=== PATIENT | female | born 1955 | race Caucasian/White ===

== ENCOUNTER → 2016-08-21 | Outpatient (CLI) | payer BC ==
[~2016-08-21] MED LIST: CALC600T9 PO; CONJ0.453 PO; DIPH1TAB PO; EPP3/2 IM; FLUT0.15 NAE; METH4PAK PO; MULT-506 PO; OMEG10007 PO
--- NOTE | 2016-08-22 12:39 | MAMMOGRAPHY REPORT ---
BILATERAL DIGITAL SCREENING MAMMOGRAM TOMOSYNTHESIS WITH CAD: 08/21/2016 CLINICAL HISTORY: Routine screening. Patient has no complaints. TECHNIQUE: Breast tomosynthesis in addition to standard 2D mammography was performed. Current study was also evaluated with a Computer Aided Detection (CAD) system. COMPARISON: Comparison is made to exams dated: 08/09/2015 mammogram, 07/28/2013 mammogram, 08/05/20 14 ultrasound, 07/16/2012 mammogram, 07/11/2011 mammogram, and 07/01/2010 mammogram - [facility]. BREAST COMPOSITION: The tissue of both breasts is heterogeneously dense, which may obscure small ma sses. FINDINGS: There is a stable intramammary lymph node in the upper outer posterior right breast. No suspicious mass, architectural distortion or cluster of microcalcifications is seen. IMPRESSION: ACR BI-RADS CATEGORY 1: NEGATIVE There is no mammographic evidence of malignancy. A 1 year screening mammogram is recommended. The p atient will receive written notification of the results. Approximately 10% of breast cancers are not detected with mammography. A negative mammographic repor t should not delay biopsy if a clinically suggestive mass is present. Ct Delaney M.D. ay/:08/21/2016 16:20:11 [employer] Power[employer] Supervisor: Alberta OCHOA(Maria Teresa)(M), [facility] letter sent: Normal 1/2 BI-RADS Code: ACR BI-RADS Category 1: Negative
== END | disposition home or self-care (01) ==
LOC: C.MAMM 11:26
PROVIDERS: ATTEND Obstetrics & Gynecology
DX: Z12.31 Encounter for screening mammogram for malignant neoplasm of breast (principal)

== ENCOUNTER 2016-11-26 11:20 | Emergency (ER) | payer BC ==
[~2016-11-26] VITALS: Ht 162.6 cm; Wt 70.0 kg
[2016-11-26 11:22] VITALS: TEMP 36.5; Ht 162.6 cm; Wt 70.0 kg
[2016-11-26] MEDS ORDERED: SODIUM CHLORIDE 0.9% 1000ML 1,000 ML IV STA (11:31)
[2016-11-26] MEDS ORDERED: FAMOTIDINE IV INJ 20 MG in DEXTROSE 5% 100ML 100 ML IV STA (11:31)
[2016-11-26] MEDS ORDERED: METHYLPREDNISOLONE 125 MG VIAL IV STA (11:31)
[2016-11-26] MEDS ORDERED: DiphenhydrAMINE HCL 50 MG/ML VIAL IV STA (11:31)
[2016-11-26] MEDS ORDERED: DIPH1TAB87 PO (11:32)
[2016-11-26] MEDS ORDERED: CALC600T9 PO (11:34)
[2016-11-26] MEDS ORDERED: CONJ0.453 PO (11:34)
[2016-11-26] MEDS ORDERED: MULT-506 PO (11:34)
[2016-11-26] MEDS ORDERED: EPP3/2 IM ×2 (11:34→13:51)
[2016-11-26] MEDS ORDERED: FLUT0.15 NAE (11:34)
[2016-11-26] MEDS ORDERED: OMEG10007 PO (11:34)
[2016-11-26 11:47] VITALS: O2SAT 100
[2016-11-26 11:49] LABS: BASO % 0.1 %; BASO ABS # 0.01 K/uL (0-0.2); COMPLETE YES; EOS % 1.6 %; HEMATOCRIT 43.1 % (37-47); IG% 0.3 %; LYMPH % 45.6 %; LYMPH ABS # 3.19 K/uL (1.2-3.4); MEAN CELL VOLUME 92.5 fL (80-100); MEAN CORPUSCULAR HEMOGLOBIN 31.8 pg (25-34); MEAN CORPUSCULAR HGB CONC 34.3 g/dl (32-36); MEAN PLATELET VOLUME 10.7 fL (7.4-10.4); MONO % 6.2 %; NEUT % 46.2 %; PLATELET COUNT 282 K/uL (130-400); RED BLOOD COUNT 4.66 M/uL (4.2-5.4); WHITE BLOOD COUNT 6.99 K/uL (4.8-10.8)
[2016-11-26 12:06] LABS: BUN/CREATININE RATIO 15.9 (10-20); CALCIUM 9.2 mg/dl (8.5-10.1); CREATININE 0.89 mg/dl (0.60-1.20); POTASSIUM 3.7 mmol/L (3.5-5.1)
[2016-11-26] MEDS ORDERED: METH4PAK PO (13:51)
[2016-11-26 14:10] VITALS: BP 114/82; PULSE 70; O2SAT 98
--- NOTE | 2016-11-26 20:24 | EMERGENCY ROOM VISIT NOTE ---
History First contact with patient: 11:25 Chief Complaint: ALLERGIC REACTION Stated Complaint: BEE STINGS History of Present Illness The patient is a 60 year old female who presents to the Emergency Room with complaints of an allergic reaction to honey bee stings. The patient and reported that they were working with their the hives when they swarmed and stung the patient. The patient reports multiple stings. Within a few minutes, she started to develop itchiness and swelling of her skin. She denies any tongue/throat swelling, palpitations or shortness of breath. She did take Benadryl approximately 20 minutes prior to arrival without any relief. The patient denies any prior history of bee stings, and has been stung before in the past. She rates her overall discomfort an 8 out of 10. Tetanus immunization is up-to-date. Review of Systems HEENT: Denies dizziness, visual problems, hearing loss, tinnitus. Denies difficulty swallowing or oral lesions. PULMONARY: Denies cough, shortness of breath, sputum production or hemoptysis. CARDIOVASCULAR: Denies chest pain, palpitations, dyspnea on exertion, orthopnea or peripheral edema. GASTROINTESTINAL: Denies diarrhea, constipation, nausea, vomiting, or abdominal pain. GENITOURINARY: Denies dysuria, frequency, urgency or nocturia. NEUROLOGIC: Denies history of epilepsy, CVA, TIA or chronic headaches. MUSCULOSKELETAL: Denies history of joint tenderness/swelling. SKIN: Denies rashes or lesions. PSYCHIATRIC: Denies history of depression or mental illness. ENDOCRINE: Denies history of diabetes or thyroid disorders. Past Medical/Surgical History Medical Problems: (1) Asthma, Unspecified (2) Diverticulosis Colon (W/O Ment Of Hemorrhage) (3) Hypercholesterolemia Surgical Problems: (1) No history of previous surgery Family History FH: cancer FH: diabetes mellitus FH: gallbladder disease FH: heart disease FH: hypertension Social History Smoking Status: Never Smoker Alcohol Use: occasionally Marital Status: Occupation Status: retired Current/Historical Medications Scheduled Calcium Carbonate-Vitamin D (Calcium + D), 1 TAB PO DAILY Diphenhydramine Hcl (Benadryl Allergy), 50 MG PO DIRECTED Epinephrine (Epipen), 0.3 MG IM UD Epinephrine (Epipen), 0.3 MG IM UD [place] Conj/Medryoxyprog Acet (Prempro 0.45MG/1.5MG), 1 TAB PO DAILY Fish Oil ([place]-3), 1 CAP PO DAILY Methylprednisolone (Medrol Dosepak), 0 PO DAILY Multivitamin (Multivitamin), 1 TAB PO DAILY Scheduled PRN Fluticasone Propionate (Nasal) (Flonase Allergy Relief), 1 SPRAY MAGY DAILY PRN for PRN Allergies Coded Allergies: No Known Allergies (Unverified , 11/26/16) Physical Exam Vital Signs Date Time Temp Pulse Resp B/P Pulse Ox O2 Delivery O2 Flow Rate FiO2 11/26/16 14:10 70 114/82 98 11/26/16 13:00 60 135/82 11/26/16 12:31 65 11/26/16 11:55 65 16 155/59 100 Room Air 11/26/16 11:47 100 Room Air 11/26/16 11:47 100 Room Air 11/26/16 11:22 36.5 85 18 150/94 99 Room Air Physical Exam CONSTITUTIONAL: Healthy and well nourished. Alert and oriented X 3 with positive affect. Patient appears in mild to moderate distress from pruritus and discomfort. HEENT: Normocephalic, atraumatic. Pupils equal, round and reactive. No conjunctival injection. OROPHARYNX: No evidence for May[place]'s angina or angioedema. Posterior pharynx is patent. NECK: Full active range of motion without discomfort. No JVD or carotid bruits. RESPIRATORY: Clear to auscultation bilaterally with no wheezing, crackles, rhonchi or stridor. CARDIOVASCULAR: Regular rate and rhythm with no murmurs, rubs or gallops. GASTROINTESTINAL: Bowel sounds present in all quadrants. Soft and nontender to palpation. MUSCULOSKELETAL: Full range of motion of all joints without discomfort. INTEGUMENTARY: Examination shows global widespread urticaria. Quick examination does not show any obvious stingers. NEUROLOGIC: Cranial nerves II-XII grossly intact. No focal neurologic deficits noted. Medical Decision & Procedures ER Provider Diagnostic Interpretation: My interpretation of an ECG shows a normal sinus rhythm of [address] elevation or other conduction abnormalities. Laboratory Results 11/26/16 11:34 Red Blood Count 4.66, Mean Corpuscular Volume 92.5, Mean Corpuscular Hemoglobin 31.8, Mean Corpuscular Hemoglobin Concent 34.3, Mean Platelet Volume 10.7, Neutrophils (%) (Auto) 46.2, Lymphocytes (%) (Auto) 45.6, Monocytes (%) (Auto) 6.2, Eosinophils (%) (Auto) 1.6, Basophils (%) (Auto) 0.1, Neutrophils # (Auto) 3.23, Lymphocytes # (Auto) 3.19, Monocytes # (Auto) 0.43, Eosinophils # (Auto) 0.11, Basophils # (Auto) 0.01 11/26/16 11:34 Test 11/26/16 11:34 White Blood Count 6.99 K/uL (4.8-10.8) Red Blood Count 4.66 M/uL (4.2-5.4) Hemoglobin 14.8 g/dL (12.0-16.0) Hematocrit 43.1 % (37-47) Mean Corpuscular Volume 92.5 fL (80-100) Mean Corpuscular Hemoglobin 31.8 pg (25-34) Mean Corpuscular Hemoglobin Concent 34.3 g/dl (32-36) Platelet Count 282 K/uL (130-400) Mean Platelet Volume 10.7 fL (7.4-10.4) Neutrophils (%) (Auto) 46.2 % Lymphocytes (%) (Auto) 45.6 % Monocytes (%) (Auto) 6.2 % Eosinophils (%) (Auto) 1.6 % Basophils (%) (Auto) 0.1 % Neutrophils # (Auto) 3.23 K/uL (1.4-6.5) Lymphocytes # (Auto) 3.19 K/uL (1.2-3.4) Monocytes # (Auto) 0.43 K/uL (0.11-0.59) Eosinophils # (Auto) 0.11 K/uL (0-0.5) Basophils # (Auto) 0.01 K/uL (0-0.2) RDW Standard Deviation 42.8 fL (36.4-46.3) RDW Coefficient of Variation 12.8 % (11.5-14.5) Immature Granulocyte % (Auto) 0.3 % Immature Granulocyte # (Auto) 0.02 K/uL (0.00-0.02) Anion Gap 12.0 mmol/L (3-11) Est Creatinine Clear Calc Drug Dose 66.2 ml/min Estimated GFR () 82.8 Estimated GFR (Non- 71.4 BUN/Creatinine Ratio 15.9 (10-20) Calcium Level 9.2 mg/dl (8.5-10.1) The above labs were reviewed and unremarkable. Medications Administered Medications (Trade) Dose Ordered Sig/Oxana Route Start Time Stop Time Status Last Admin Dose Admin Sodium Chloride (Nss 1000ml) 1,000 ml @ 0 mls/hr Q0M STAT IV 11/26/16 11:31 11/26/16 11:34 DC 11/26/16 11:43 1,000 MLS/HR Methylprednisolone Sodium Succinate (Solu-Medrol IV) 125 mg NOW STAT IV 11/26/16 11:31 11/26/16 11:34 DC 11/26/16 11:43 125 MG Diphenhydramine HCl 50 mg 50 mg NOW STAT IV 11/26/16 11:31 11/26/16 11:34 DC 11/26/16 11:31 50 MG Famotidine/ Dextrose (Pepcid IV Inj/ D5 100ml) 102 ml @ 200 mls/hr ONE STAT IV 11/26/16 11:31 11/26/16 12:01 DC 11/26/16 12:06 200 MLS/HR Procedure 1. IV hydration: The patient received a liter normal saline bolus 2. IV medications: The patient initially was administered Benadryl 50 mg, Pepcid 20 mg and Solu-Medrol 125 mg IVP ED Course Patient history and physical exam were performed. Nurse's notes were reviewed. Vital signs were reviewed and normal. The patient is normotensive and not tachycardic. O2 saturation is 99% on room air. Clinical exam does not show the patient in any acute distress. She has no physical exam findings to suggest angioedema or airway compromise. IV access was established, and labs were drawn. Patient was also placed on cardiac rehabilitation specialist. The patient was hydrated with normal saline, and received IV medications as discussed in the previous Procedure section. ECG was normal. Review of labs showed no acute abnormalities. The patient quickly resolved the hives. She was observed for 2 hours without any adverse reaction. At the time of discharge, the patient denied any palpitations, chest tightness, difficulty breathing, throat/tongue swelling or other concerning symptoms. She felt well enough to go home. The patient was provided prescriptions for a Medrol Dosepak and EpiPen 2 pack with a labor trainer. I did encourage the patient to take Benadryl and Zantac over the next 48-72 hours. She will take her next dose of her Medrol Dosepak tomorrow morning. She was encouraged to keep cool and avoid any other strenuous activities for the next few days. If she develops any severe reaction , she was instructed to administer her EpiPen and called 911. Otherwise, she was encouraged to follow-up with her PCP as needed for further management. She was warned about the potential reaction to any future bee stings, and encouraged to practice safe bee keeping. The patient and were happy with plan of care, and voiced understanding of all discharge instructions. Medical Decision Impression Primary Impression: Anaphylaxis Departure Information Prescriptions Epinephrine (EPIPEN) 0.3 Mg/0.3 Ml Inj 0.3 MG IM UD, #1 BOX Prov: Jake Sapp PA 11/26/16 Methylprednisolone (MEDROL DOSEPAK) 4 Mg [place] 0 PO DAILY, #1 PKT Prov: Jake Sapp PA 11/26/16 Referrals Buck Koenig M.D. (PCP) Patient Instructions My [facility] Problem Qualifiers Primary Impression: Anaphylaxis Encounter type: initial encounter Qualified Codes: T78.2XXA - Anaphylactic shock, unspecified, initial encounter
== END 2016-11-26 14:12 | disposition home or self-care (01) ==
LOC: C.EDB 11:22 → C.EDC 14:12
DX: T78.2XXA Anaphylactic shock, unspecified, initial encounter (principal); X58.XXXA Exposure to other specified factors, initial encounter; T63.441A Toxic effect of venom of bees, accidental (unintentional), initial encounter; J45.909 Unspecified asthma, uncomplicated; K57.30 Diverticulosis of large intestine without perforation or abscess without bleeding; E78.00 Pure hypercholesterolemia, unspecified; Z80.9 Family history of malignant neoplasm, unspecified; Z83.3 Family history of diabetes mellitus; Z83.79 Family history of other diseases of the digestive system; Z82.49 Family history of ischemic heart disease and other diseases of the circulatory system; Z79.899 Other long term (current) drug therapy

== ENCOUNTER → 2017-04-26 | Outpatient (CLI) | payer BC ==
[~2017-04-26] MED LIST changes: -METH4PAK PO
== END | disposition home or self-care (01) ==
LOC: C.PAPS 09:24
PROVIDERS: ATTEND Obstetrics & Gynecology
DX: Z01.419 Encounter for gynecological examination (general) (routine) without abnormal findings (principal); Z11.51 Encounter for screening for human papillomavirus (HPV)

== ENCOUNTER → 2017-08-22 | Outpatient (CLI) | payer OTHER ==
[~2017-08-22] MED LIST changes: -DIPH1TAB PO; +DIPH1TAB87 PO
--- NOTE | 2017-08-22 15:31 | MAMMOGRAPHY REPORT ---
BILATERAL DIGITAL SCREENING MAMMOGRAM TOMOSYNTHESIS WITH CAD: 08/22/2017 CLINICAL HISTORY: Routine screening. Patient has no complaints. TECHNIQUE: Breast tomosynthesis in addition to standard 2D mammography was performed. Current study was also evaluated with a Computer Aided Detection (CAD) system. COMPARISON: Comparison is made to exams dated: 08/21/2016 mammogram, 08/09/2015 mammogram, 08/05/2014 mammogram, 07/28/2013 mammogram, 07/16/2012 mammogram, and 07/11/2011 mammogram - [facility]. BREAST COMPOSITION: The tissue of both breasts is heterogeneously dense, which may obscure small mas ses. FINDINGS: There are a few stable punctate microcalcifications in the breasts. A nodular asymmetry in the middle one third of the right breast, slightly lateral to the posterior nipple line on the CC vi ew appears stable on all available prior mammograms dating back to at least 2011, therefore likely be nign. No new suspicious mass, architectural distortion or cluster of microcalcifications is seen. IMPRESSION: ACR BI-RADS CATEGORY 1: NEGATIVE There is no mammographic evidence of malignancy. A 1 year screening mammogram is recommended. The pa tient will receive written notification of the results. Approximately 10% of breast cancers are not detected with mammography. A negative mammographic report should not delay biopsy if a clinically suggestive mass is present. Ct Delaney M.D. ay/:08/22/2017 10:21:27 Bath Attendant: Jannie MINOR)(Allen), letter sent: Normal 1/2 BI-RADS Code: ACR BI-RADS Category 1: Negative
== END | disposition home or self-care (01) ==
LOC: C.MAMM 09:58
PROVIDERS: ATTEND Obstetrics & Gynecology
DX: Z12.31 Encounter for screening mammogram for malignant neoplasm of breast (principal)

== ENCOUNTER → 2017-12-26 | Day surgery (SDC) | payer BC, OTHER ==
[2017-12-13 15:07] VITALS: Ht 162.6 cm; Wt 68.2 kg
[~2017-12-26] VITALS: Ht 162.6 cm; Wt 68.2 kg
[~2017-12-26] MED LIST changes: +ALBU18002 INH; +CONJ0.3T3 PO; -CONJ0.453 PO; +KETO10TA PO; +LIDOCAINE HCL 2% 2 ML VIAL (20MG/ML) ONE; +OXYC-57 PO; +PROPOFOL IV EMULSION 10 MG/ML 20 ML VIAL ONE; +RANI150T3 PO
--- NOTE | 2017-12-26 12:47 | Endo History and Physical ---
History & Physical Date of Service: December 26, 2017. Chief Complaint: Screening Referring Physician: Dr Centeno History of Present Illness 62 yo CF who presents for screening colonoscopy. Past Surgical History Hx Cardiac Surgery: No Hx Internal Defibrillator: No Hx Pacemaker: No Hx Abdominal Surgery: No Hx of Implantable Prosthesis: No Hx Post-Op Nausea and Vomiting: No Hx Cancer Surgery: No Hx Thoracic Surgery: No Hx Orthopedic: No Hx Urinary Tract Surgery: No Family History Colon CA, Polyp Social History Smoking Status: Never Smoker Hx Substance Use: No Hx Alcohol Use: Yes (OCCASIONALLY 1-2 GLASSES OF WINE) Allergies Coded Allergies: NO KNOWN DRUG ALLERGIES (Verified Allergy, Unknown, ., 12/26/17) Uncoded Allergies: BEE STINGS (Allergy, Severe, ANAPHYLAXIS, 12/13/17) Current Medications Reported Home Medications Medications Dose Route/Sig Max Daily Dose Days Date Category Proair Respiclick (Albuterol Sulfate) 108 Mcg/Act Aer 2 Puffs INH QID 12/13/17 Reported Prempro 0.3MG/1.5MG (Estrogens Conj/Medroxyprogest Acet) Tab 1 Tab PO DAILY 30 12/13/17 Reported Zantac (Ranitidine HCl) 150 Mg Tab 150 Mg PO DAILY PRN 12/13/17 Reported Epipen (Epinephrine) 0.3 Mg/0.3 Ml Inj 0.3 Mg IM UD 11/26/16 Reported Flonase Allergy Relief (Fluticasone Propionate (Nasal)) 50 Mcg/Act Spr 1 [place] MAGY DAILY PRN 11/26/16 Reported Calcium + D (Calcium Carbonate-Vitamin D) 1 Tab Tab 1 Tab PO DAILY 11/26/16 Reported [place]-3 (Fish Oil) 1 Ea Cap 1 Cap PO DAILY 11/26/16 Reported Multivitamin (Multivitamins) Tab 1 Tab PO DAILY 11/26/16 Reported Benadryl Allergy (Diphenhydramine Hcl) 25 Mg Tab 50 Mg PO DIRECTED 11/26/16 Reported Vital Signs Weight (Kilograms): 68.18 Height (Feet): 5 Height (Inches): 4 Date Time Temp Pulse Resp B/P (MAP) Pulse Ox O2 Delivery O2 Flow Rate FiO2 12/26/17 12:36 37.0 70 20 123/74 (90) 98 Room Air Physical Exam General Appearance: WD/WN, no apparent distress Respiratory/Chest: Auscultation: breath sounds normal Cardiovascular: Heart Auscultation: RRR Abdomen: Bowel Sounds: normal Inspection & Palpation: soft, non-distended, no tenderness, guarding & rebound Assessment and Plan Assessment: 62 yo CF who presents for screening colonoscopy. Plan: Proceed with colonoscopy.
--- NOTE | 2017-12-26 13:21 | Discharge Instructions ---
Endoscopy Patient Instructions Date / Procedure(s) Performed December 26, 2017. Colonoscopy Allergy Information Coded Allergies: NO KNOWN DRUG ALLERGIES (Verified Allergy, Unknown, ., 12/26/17) Uncoded Allergies: BEE STINGS (Allergy, Severe, ANAPHYLAXIS, 12/13/17) Discharge Date / Findings December 26, 2017. Colon polyp Rectal polyp Internal hemorrhoids Medication Instructions OK to resume all medications today as prescribed Reported Home Medications Medications Dose Route/Sig Max Daily Dose Days Date Category Proair Respiclick (Albuterol Sulfate) 108 Mcg/Act Aer 2 Puffs INH QID 12/13/17 Reported Prempro 0.3MG/1.5MG (Estrogens Conj/Medroxyprogest Acet) Tab 1 Tab PO DAILY 30 12/13/17 Reported Zantac (Ranitidine HCl) 150 Mg Tab 150 Mg PO DAILY PRN 12/13/17 Reported Epipen (Epinephrine) 0.3 Mg/0.3 Ml Inj 0.3 Mg IM UD 11/26/16 Reported Flonase Allergy Relief (Fluticasone Propionate (Nasal)) 50 Mcg/Act Spr 1 [place] MAGY DAILY PRN 11/26/16 Reported Calcium + D (Calcium Carbonate-Vitamin D) 1 Tab Tab 1 Tab PO DAILY 11/26/16 Reported [place]-3 (Fish Oil) 1 Ea Cap 1 Cap PO DAILY 11/26/16 Reported Multivitamin (Multivitamins) Tab 1 Tab PO DAILY 11/26/16 Reported Benadryl Allergy (Diphenhydramine Hcl) 25 Mg Tab 50 Mg PO DIRECTED 11/26/16 Reported Provider Instructions Activity Restrictions - No exercising or heavy lifting for 24 hours. - Do not drink alcohol the day of the procedure. - Do not drive a car or operate machinery until the day after the procedure. - Do not make any important decisions or sign important papers in 24 hours after the procedure. Following Day: - Return to full activity which may include returning to work/school. Diet Start your diet with liquids and light foods (jello, soup, juice, toast). Then eat your usual diet if not nauseated. Treatment For Common After Affects For mild abdominal pain, bloating, or excessive gas: - Rest - Eat lightly - Lie on right side Follow-Up Information Follow-up with Dr Centeno as scheduled Anesthesia Information What You Should Know You have had a procedure that required some medicine to reduce anxiety and discomfort. This treatment is called moderate sedation. After receiving the treatment, you may be sleepy, but you will be able to breathe on your own. The effects of the treatment may last for several hours. Follow these instructions along with Activity/Diet recommendations noted above: * Do NOT do anything where dizziness or clumsiness would be dangerous. * Rest quietly at home today, then you can be up and about tomorrow. * Have a responsible person stay with you the rest of today. * You may have had an I.V. today. If so, you may take the dressing off later today. Recommendations Call your doctor if: * Trouble breathing * Continuous vomiting for more than 24 hours * Temperature above 101 degrees * Severe abdominal pain or bloating * Pain not relieved by pain medicine ordered * There is increased drainage or redness from any incision * A large amount of rectal bleeding greater than 2-3 tablespoons. (If you had a polyp/s removed or have hemorrhoids, a small amount of blood - from the rectum is to be expected.) * You have any unanswered questions or concerns. IN THE EVENT OF A SERIOUS EMERGENCY, GO TO THE NEAREST EMERGENCY ROOM Your discharge instructions were prepared by provider Missael Philippe. Patient Instructions Signature Page Callie Glynn Patient (or Guardian) Signature/Date: I have read and understand the instructions given to me by my caregivers. Caregiver/RN/Doctor Signature/Date: The above-named patient and/or guardian has received patient instructions on this date. + Original Patient Signature Page (only) stays with chart. Please make copy for patient.
--- NOTE | 2017-12-26 13:28 | GI REPORT ---
Patient Name: Callie Glynn Procedure Date: 12/26/2017 12:50 PM Date of : 1955 Admit Type: Outpatient Age: 62 Gender: Female Attending MD: Missael Philippe DO Procedure: Colonoscopy Providers: Missael Philippe DO Referring MD: Jocelyn Centeno Indications: Screening for colorectal malignant neoplasm Medicines: Monitored Anesthesia Care Complications: No immediate complications. Estimated Blood Loss: Estimated blood loss: none. Procedure: Pre-Anesthesia Assessment: - Prior to the procedure, a History and Physical was performed, and patient medications and allergies were reviewed. The patient's tolerance of previous anesthesia was also reviewed. The risks and benefits of the procedure and the sedation options and risks were discussed with the patient. All questions were answered, and informed consent was obtained. Prior Anticoagulants: The patient has taken no previous anticoagulant or antiplatelet agents. ASA Grade Assessment: II - A patient with mild systemic disease. After reviewing the risks and benefits, the patient was deemed in satisfactory condition to undergo the procedure. After I obtained informed consent, the scope was passed under direct vision. Throughout the procedure, the patient's blood pressure, pulse, and oxygen saturations were monitored continuously. The Scope was introduced through the anus and advanced to the terminal ileum. The colonoscopy was performed without difficulty. The patient tolerated the procedure well. The quality of the bowel preparation was good. The terminal ileum, ileocecal valve, appendiceal orifice, and rectum were photographed. Findings: The perianal and digital rectal examinations were normal. Two sessile polyps were found in the rectum and ascending colon. The polyps were 4 to 5 mm in size. These polyps were removed with a hot snare. Resection and retrieval were complete. Non-bleeding internal hemorrhoids were found during retroflexion. The hemorrhoids were small. Impression: - Two 4 to 5 mm polyps in the rectum and in the ascending colon, removed with a hot snare. Resected and retrieved. - Non-bleeding internal hemorrhoids. Recommendation: - Resume previous diet. - Continue present medications. - Repeat colonoscopy for surveillance based on pathology results. - Return to primary care physician as previously scheduled. Missael Philippe DO 12/26/2017 1:28:07 PM This report has been signed electronically. Note Initiated On: 12/26/2017 12:50 PM Number of Addenda: 0 I attest to the content of the Intraoperative Record and orders documented therein, exceptions below {[id number]}
--- NOTE | 2017-12-26 13:37 | Anesthesiology Progress Note ---
Anesthesia Post Op Note Date & Time December 26, 2017 at 13:37 Vital Signs Pain Intensity: 2 Vital Signs Past 12 Hours Date Time Temp Pulse Resp B/P (MAP) Pulse Ox O2 Delivery O2 Flow Rate FiO2 12/26/17 13:23 63 20 98/63 (75) 97 Room Air 12/26/17 12:36 37.0 70 20 123/74 (90) 98 Room Air Notes Mental Status: alert / awake / arousable, participated in evaluation Pt Amnestic to Procedure: Yes Nausea / Vomiting: adequately controlled Pain: adequately controlled Airway Patency, RR, SpO2: stable & adequate BP & HR: stable & adequate Hydration State: stable & adequate Anesthetic Complications: no major complications apparent
[2017-12-26 13:52] VITALS: BP 105/70; PULSE 56; O2SAT 100
== END | disposition home or self-care (01) ==
LOC: C.GI 11:57
PROVIDERS: ATTEND Internal Medicine
DX: Z12.11 Encounter for screening for malignant neoplasm of colon (principal); D12.2 Benign neoplasm of ascending colon; K62.1 Rectal polyp; K64.8 Other hemorrhoids; Z85.038 Personal history of other malignant neoplasm of large intestine; Z91.030 Bee allergy status; Z79.899 Other long term (current) drug therapy; Z90.89 Acquired absence of other organs

== ENCOUNTER → 2018-01-03 | Day surgery (SDC) | payer OTHER ==
[2017-12-14 12:50] VITALS: Ht 162.6 cm; Wt 68.2 kg
[2017-12-24 14:46] LABS: BASO % 0.3 %; BASO ABS # 0.02 K/uL (0-0.2); EOS % 2.4 %; EOS ABS # 0.17 K/uL (0-0.5); HEMATOCRIT 39.5 % (37-47); HEMOGLOBIN 13.7 g/dL (12.0-16.0); LYMPH % 34.3 %; LYMPH ABS # 2.44 K/uL (1.2-3.4); MEAN CELL VOLUME 94.7 fL (80-100); MEAN CORPUSCULAR HEMOGLOBIN 32.9 pg (25-34); MEAN CORPUSCULAR HGB CONC 34.7 g/dl (32-36); MEAN PLATELET VOLUME 11.1 fL (7.4-10.4); MONO % 4.5 %; MONO ABS # 0.32 K/uL (0.11-0.59); NEUT % 58.5 %; NEUT ABS # 4.17 K/uL (1.4-6.5); PLATELET COUNT 234 K/uL (130-400); RED CELL DISTRIBUTION WIDTH CV 12.8 % (11.5-14.5); RED CELL DISTRIBUTION WIDTH SD 44.1 fL (36.4-46.3); WHITE BLOOD COUNT 7.12 K/uL (4.8-10.8)
[2017-12-24 15:13] LABS: CALCIUM 8.9 mg/dl (8.5-10.1); CREATININE 0.77 mg/dl (0.60-1.20); POTASSIUM 3.5 mmol/L (3.5-5.1)
[~2018-01-03] VITALS: Ht 162.6 cm; Wt 68.2 kg
[~2018-01-03] MED LIST changes: +ATROPINE SULFATE 0.1 MG/ML 5ML SYR IV PRN; +CEFAZOLIN 2000MG IV PUSH 15 ML IV SCH; +DEXAMETHASONE SOD INJ 4 MG/ML VIAL ONE; +EpHEDrine SULFATE INJ 50 MG/ML AMP IV PRN; +EpINEphrine INJ 1MG/ML AMP 1 MG/ML AMP ONE; +FENTANYL CITRATE INJ 50 MCG/1 ML 2 ML VIAL IV PRN; +FENTANYL CITRATE INJ 50 MCG/1 ML 2 ML VIAL ONE; +FLUMAZENIL 0.1 MG/1 ML 10 ML VIAL IV PRN; +HYDROmorphone INJ 2 MG/ML SYR/VIAL IV PRN; +KETOROLAC TROMETHAMINE 30 MG/ML VIAL IV. PRN; +KETOROLAC TROMETHAMINE 30 MG/ML VIAL ONE; +LABETALOL HCL IV 5 MG/ML 20ML IV PRN; +LACTATED RINGER'S 1000ML 1,000 ML IV SCH; +MEPERIDINE HCL 25 MG/ML CARP IV PRN; +MIDAZOLAM HCL 1 MG/ML 2ML VIAL ONE; +NALOXONE HCL 0.4 MG/1 ML VIAL/CARP IV PRN; +ONDANSETRON INJ 2 MG/ML 2 ML VIAL IV PRN; +ONDANSETRON INJ 2 MG/ML 2 ML VIAL ONE; +OXYCODONE/ACETAMINOPHEN 5-325 TAB PO PRN; +PHENYLEPHRINE 100MCG/ML 5ML SYR IV PRN; +ROPIVACAINE 0.5% 5 MG/ML 30 ML VIAL ONE; +SODIUM CHLORIDE 0.9% 1000ML 1,000 ML IV SCH
--- NOTE | 2018-01-03 09:00 | History & Physical Bridge - SC ---
H&P Re-Evaluation Bridge Note: I have examined the patient, reviewed the History & Physical and in the interval since the performance of the History & Physical I have noted the following changes of clinical significance: No changes noted
--- NOTE | 2018-01-03 10:17 | [facility] Post Operative Brief Note ---
Immediate Operative Summary Operative Date January 03, 2018. Pre-Operative Diagnosis Right Knee Medial Meniscus Tear Post-Operative Diagnosis Medial Meniscal Tear, Chondromalacia, Plica Procedure(s) Performed Right Knee Arthroscopy With Partial Medial Meniscectomy, chondroplasty, limited synovectomy Surgeon Dr. Berrios [employer] Director Surgeon(s) Jeff Schmid PA-C Estimated Blood Loss 5 ml Findings Consistent with Post-Op Diagnosis Specimens None Anesthesia Type General Complication(s) none Disposition Disposition: Recovery Room / PACU
--- NOTE | 2018-01-03 10:30 | Discharge Instructions-SurgCtr ---
Discharge Instructions Date of Service January 03, 2018. Visit Reason for Visit: Right Knee Medial Meniscus Tear Discharge Discharge Diagnosis / Problem: SAME ABOVE Discharge Goals Goal(s): Decrease discomfort, Improve function Medications Stopped Medications Name(s): no blood thinners no herbs Restart Stopped Medication(s): DECEMBER RESTART 01/02/2018 Activity Recommendations Activity Limitations: as noted below Lifting Limitations: until after follow-up appointment Exercise/Sports Limitations: until after follow-up appointment Shower/Bathe: tomorrow Anesthesia . Post Anesthesia Instructions: If you have had General Anesthesia or IV Sedation: * Do not drive today. * Resume driving when surgeon permits. * Do not make important decisions or sign legal documents today. * Call surgeon for: 1. Temperature elevations greater than 101 degrees F. 2. Uncontrollable pain. 3. Excessive bleeding. 4. Persistent nausea and vomiting. 5. Medication intolerance (nausea, vomiting or rash). * For nausea and vomiting use only clear liquids such as: tea, soda, bouillon until nausea subsides, then gradually increase diet as tolerated. * If you have any concerns or questions, call your surgeon's office. If physician is unavailable and it is an emergency, call 911 or go to the nearest emergency room. . Diet Recommendations Home Diet: no limitations Fluid Restriction: None Procedures Procedures Performed: Right Knee Arthroscopy With Partial Medial Meniscectomy, chondroplasty, limited synovectomy Pending Studies Studies pending at discharge: no Work Instructions Return To Work: after follow-up Medical Emergencies . Who to Call and When: Medical Emergencies: If at any time you feel your situation is an emergency, please call 911 immediately. . Non-Emergent Contact Non-Emergency issues call your: Primary Care Provider Call Non-Emergent contact if: you have a fever, temperature is above 101.5 . . "Provider Documentation" section prepared by Ahsan Schmid. .
--- NOTE | 2018-01-03 11:14 | Anesthesia Progress Nt - [facility] ---
Anesthesia Post Op Note Date & Time January 03, 2018 at 11:14 Vital Signs Pain Intensity: 3 Vital Signs Past 12 Hours Date Time Temp Pulse Resp B/P (MAP) Pulse Ox O2 Delivery O2 Flow Rate FiO2 01/03/18 11:06 Room Air 01/03/18 10:26 36.4 56 16 106/73 100 Diffusion Mask 6 01/03/18 09:18 36.5 71 16 122/84 (97) 71 Room Air Notes Mental Status: alert / awake / arousable, participated in evaluation Pt Amnestic to Procedure: Yes Nausea / Vomiting: adequately controlled Pain: adequately controlled Airway Patency, RR, SpO2: stable & adequate BP & HR: stable & adequate Hydration State: stable & adequate Anesthetic Complications: no major complications apparent
[2018-01-03 11:24] VITALS: TEMP 36.4
[2018-01-03 11:49] VITALS: BP 119/73; PULSE 55; O2SAT 99
--- NOTE | 2018-01-03 12:21 | OPERATIVE REPORT ---
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 POSTOPERATIVE DIAGNOSES: Partial medial meniscus tear, chondromalacia and plica of the right knee. PROCEDURES: Right knee diagnostic arthroscopy with limited synovectomy including plica excision, chondroplasty and partial medial meniscectomy. SURGEON: Casey Berrios DO [employer] DEVELOPER: Ahsan Schmid PA-C, whose assistance was necessary for helping with arthroscopic instrumentation and closure. ANESTHESIA: General. COMPLICATIONS: None. CONDITION: Stable to PACU. INDICATIONS: Callie is a pleasant 62-year-old female who has been having an 18-month history of right knee pain. MRI and clinical examination were diagnostic for partial medial meniscus tear. After failing conservative treatment, she elected to undergo arthroscopy. OPERATION AND FINDINGS: On 01/03/2018, she arrived at [facility] for the above procedure. She was seen in the preoperative holding and the operative extremity was identified and signed. She was given a preoperative antibiotic and taken back to the operating room, laid on the table in supine position and put under general anesthesia. The right knee was then prepped and draped in sterile fashion. A time-out was done. The patient's operative extremity was properly identified. A scope was placed in the lateral parapatellar portal. Diagnostic arthroscopy showed no loose bodies in the suprapatellar pouch. There was no chondral damage in the trochlea or on the undersurface of the patella. The scope was then brought into the medial compartment. There was grade 3 and grade 2 chondral changes over the distal medial femoral condyle. There was a complex tear of the posterior aspect of the medial meniscus. A medial parapatellar portal was made under direct visualization and a probe was used to probe the meniscus. A shaver was then used to remove the unstable portions of the meniscus. The meniscus was once again probed and felt to be stable. A limited chondroplasty was then done of the distal medial femoral condyle to remove any loose cartilage fragments. The scope was then brought into the trochlea. ACL and PCL were intact. The scope was then brought into the lateral compartment and the meniscus and cartilage was intact laterally. The knee was then brought out to full extension. There was a large medial-sided plica. A shaver was used to remove the plical band. This completed a limited synovectomy and plica excision. The knee was brought through a full range of motion and there was no more rubbing. The scope was then placed in the medial parapatellar portal. Repeat diagnostic arthroscopy showed no additional pathology. The knee was then irrigated. Arthroscopic instrument removed. Portal sites were closed with 3-0 nylon. The knee was then injected with 30 mL of Naropin with epinephrine and Toradol. She was then placed in a soft compressive dressing, extubated, transferred to a [facility] and taken to the postanesthesia care unit in stable condition. She tolerated the procedure well. I attest to the content of the Intraoperative Record and any orders documented therein. Any exception s are noted below.
== END | disposition home or self-care (01) ==
LOC: X.SURG 09:06
PROVIDERS: ATTEND Orthopaedic Surgery
DX: S83.241A Other tear of medial meniscus, current injury, right knee, initial encounter (principal); J45.909 Unspecified asthma, uncomplicated; Z82.49 Family history of ischemic heart disease and other diseases of the circulatory system; E78.5 Hyperlipidemia, unspecified; K21.9 Gastro-esophageal reflux disease without esophagitis; X58.XXXA Exposure to other specified factors, initial encounter